=== PATIENT | female | born 1950 | race Caucasian/White ===

== ENCOUNTER 2017-04-07 08:25 | Day surgery (SDC) | payer MEDICARE ==
--- NOTE | 2017-04-07 05:09 | History and Physical Report ---
DATE: 04/06/2017. CHIEF COMPLAINT AND HISTORY OF CHIEF COMPLAINT: This patient presents with a history of an intractable postlaminectomy radiculitis. On 09/11/2015 a spinal cord stimulator was implanted. Although initial results were quite positive, over time the patient simply did not use the unit and failed to recharge the generator. The generator is now depleted and the system has become nonfunctional. She was given the options to revise, replace, or remove, and she opted to remove. PAST MEDICAL HISTORY: Seizure disorder, hypertension. SOCIAL HISTORY: Caffeine. FAMILY HISTORY: Diabetes, coronary artery disease, hypertension, cancer. PAST SURGICAL HISTORY: Lumbar spinal surgery, hysterectomy, stimulator implant. MEDICATIONS ON ADMISSION: To be provided. ALLERGIES: Codeine. REVIEW OF SYSTEMS: The patient is appropriate and in no acute distress. The remainder of the systems review shows glasses, chronic head and neck pain, blood pressure issues, peripheral edema, reflux, degenerative arthritis. PHYSICAL EXAMINATION: General: Height and weight are unknown. Vital Signs: Unavailable. HEENT: Within normal limits. Lungs: Clear. Heart: Regular rate and rhythm. Abdomen: Nontender. Musculoskeletal: Examination of the musculoskeletal system shows the incision for the stimulator at T11/12-1. The incision is intact. A posterosuperior gluteal margin incision for the generator is identified at the right posterior gluteal margin and is also intact. Her lower extremity functionality shows pain across the left leg following a 5-1 pattern consistent with the level of spinal surgery. Motor and sensory field evaluation does show pain across a 5-1 pattern. No significant sensory field abnormalities are noted. No significant motor functionality compromise. Ambulation: Assistive device utilized. Neurologic: Cranial nerves are intact. IMPRESSION: 1. POSTLUMBAR LAMINECTOMY SYNDROME, ICD-10 CODE M96.1. 2. LUMBAR RADICULITIS, ICD-10 CODE M54.16 AND M54.17. 3. SPINAL CORD STIMULATOR IMPLANT. PLAN: The patient is here for removal of the spinal cord stimulator on an outpatient basis. The potential risks, side effects, and complications have been reviewed and discussed. JOB NUMBER: [id number] cc: Talon Jefferson
[~2017-04-07 08:25] MED LIST: CEFAZOLIN 2 Gram 2 GM/50 ML BAG IVPB ONE
[2017-04-07] MEDS ORDERED: LIDOCAINE 2% MDV (20MG/ML) 20ML VIAL IV ONE (08:26)
[2017-04-07] MEDS ORDERED: METOCLOPRAMIDE 10 MG TABLET PO ONE (08:26)
[2017-04-07] MEDS ORDERED: FAMOTIDINE 20MG TABLET PO ONE (08:26)
[2017-04-07] MEDS ORDERED: MIDAZOLAM HCL 2MG/2ML VIAL IV ONE (08:26)
[2017-04-07] MEDS ORDERED: FENTANYL PF 100MCG/2ML VIAL IV ONE (08:26)
[2017-04-07] MEDS ORDERED: LIDOCAINE 1% W/EPI 1:200,000 MPF 30ML SQ ONE (08:26)
[2017-04-07] MEDS ORDERED: ACETAMINOPHEN 1,000 MG/100 ML BTL IV ONE (08:26)
[2017-04-07] MEDS ORDERED: MECLIZINE 25 MG TABLET PO ONE (08:26)
[2017-04-07] MEDS ORDERED: PROPOFOL 10 MG/ML VIAL IV ONE (08:26)
[2017-04-07] MEDS ORDERED: CEFAZOLIN 1G VIAL IM ONE (08:26)
[2017-04-07] MEDS ORDERED: BUPIVACAINE 0.75% W/EPI MPF 30ML VIAL IVP ONE (08:26)
--- NOTE | 2017-04-08 15:29 | Operative Note - [place] ---
DATE OF SURGERY: 04/07/17 PREOPERATIVE DIAGNOSIS: 1. POST LUMBAR LAMINECTOMY SYNDROME, ICD-10 CODE = M96.1. 2. SPINAL CORD STIMULATOR INTERNAL GENERATOR NONFUNCTIONAL. OPERATION: 1. FLUOROSCOPICALLY-GUIDED INCISION, SUBCUTANEOUS DISSECTION, AND REMOVAL OF TWO SPINAL CORD STIMULATOR IMPLANTED LEADS. 2. INCISION, SUBCUTANEOUS DISSECTION, AND REMOVAL OF INTERNAL PULSE GENERATOR AND EXTENSIONS. SURGEON: DANIEL ASTUDILLO D.O. ANESTHESIA: LOCAL SEDATION. ANESTHESIA PROVIDER: KHRIS ORTIZ CRNA. INDICATION: This patient presents with a history of intractable lumbar radiculitis. The stimulator placement a number of years previous was functional and over time, the patient stopped using the system. Battery depleted and at that point became nonfunctional. She was given the option to revise or remove; she opted to remove. PROCEDURE: Intravenous line, vital sign monitoring, IV sedation, prepped and draped with sterile technique. The incision for the leads at the midline 12-1 was infiltrated, incision made, and subcutaneous dissection was conducted to the leads. The leads, anchor, and sutures were removed intact. Antibiotic irrigation and Bovie for hemostasis. At the right posterior gluteal margin generator site, skin infiltrated, incision made, and subcutaneous dissection was conducted to the generator pouch. The generator was removed along with the lead extensions. Antibiotic irrigation. Bovie for hemostasis. Both incisions were then closed Vicryl for fascia and running subcuticular Vicryl for skin. Dermabond closure. She was transported to the Recovery Room, stable, showing no side-effects from the procedure or the sedation. When fully awake and alert, she will be prepared for discharge. DISCHARGE INSTRUCTIONS: 1. The sites will remain clean and dry. No showering or bathing in any way that would disrupt dressings. 2. Standard medications resumed including Levaquin, the antibiotic, 500 mg once a day for 14 days. 3. Activities should stay low for the first 12-24 hours. She can then slowly increase activities. The office will contact the patient in 3-5 days to set up the appointment in 7-10 days. At that point, we will evaluate incisions and clear her for further activities. All other instructions provided, numbers to contact, problems given. She was then discharged. cc: Dr. Barboza JOB NUMBER: [id number] [facility]
== END 2017-04-07 11:12 | disposition home or self-care (01) ==
LOC: SUR 08:25
PROVIDERS: ATTEND Pain Medicine Interventional Pain Medicine
DX: T85.192A Other mechanical complication of implanted electronic neurostimulator of spinal cord electrode (lead), initial encounter (principal); T85.193A Other mechanical complication of implanted electronic neurostimulator, generator, initial encounter; R56.9 Unspecified convulsions; I10 Essential (primary) hypertension
CPT/HCPCS: 63688; 63662; 00630; J3010; J0690